=== PATIENT | male | born 1925 | race Asian ===

== ENCOUNTER 2016-09-24 06:50 | Day surgery (SDC) | payer OTHER, MEDICARE ==
[~2016-09-24] VITALS: Ht 152.4 cm; Wt 68.0 kg
[~2016-09-24 06:50] MED LIST: ARICEPT5 MG PO; CALCIUM 500 MG1 EACH PO; DAILY VALUE1 EACH PO; DIOVAN HCT 31 TABLET PO; ELIQUIS5 MG PO; HYTRIN1 MG PO; HYTRIN5 MG PO; LIPITOR40 MG PO; LOPRESSOR25 MG PO; MOVE FREE JOIN1 EACH PO; NORVASC10 MG PO; OCUVITE TABLET1 EACH PO; PROSCAR5 MG PO; URECHOLINE50 MG PO; VITAMIN D31000 UNI2 PO
[2016-09-24 07:17] VITALS: BP 169/80
[2016-09-24 10:40] VITALS: BP 179/81
== END 2016-09-24 11:03 | disposition home or self-care (01) ==
LOC: SDC 06:50
DX: H43.12 Vitreous hemorrhage, left eye (principal); I10 Essential (primary) hypertension; E78.5 Hyperlipidemia, unspecified; I65.29 Occlusion and stenosis of unspecified carotid artery; M48.02 Spinal stenosis, cervical region; I25.10 Atherosclerotic heart disease of native coronary artery without angina pectoris; Z79.01 Long term (current) use of anticoagulants; Z88.2 Allergy status to sulfonamides; Z87.891 Personal history of nicotine dependence; Z86.73 Personal history of transient ischemic attack (TIA), and cerebral infarction without residual deficits; Z95.5 Presence of coronary angioplasty implant and graft
CPT/HCPCS: J0690; J0713; J2405; J3300